=== PATIENT | male | born 1965 ===

== ENCOUNTER 2018-03-19 11:08 | Emergency (ER) | payer OTHER ==
[2018-03-19] MEDS ORDERED: Tdap Vaccine 0.5 ml Vial (10-64 yrs) IM ONE ×2 (12:10→13:14)
[2018-03-19] MEDS ORDERED: Lidocaine 1% w Epi 1:100,000 Inj IJ STA (12:13)
[2018-03-19] MEDS ORDERED: Oxycodone/Acetaminophen 5/325 mg Tab PO STA (12:13)
[2018-03-19 12:30] VITALS: O2SAT 96
[2018-03-19] MEDS ORDERED: Lidocaine 1% w Epi 1:100,000 Inj ONE (12:34)
[2018-03-19] MEDS ORDERED: Oxycodone/Acetaminophen 5/325 mg Tab ONE (13:14)
--- NOTE | 2018-03-19 13:51 | RAD ---
Date of service: 03/19/2018 PROCEDURE: Right Femur Radiographs. HISTORY: laceration COMPARISON: None. TECHNIQUE: AP and Lateral Radiographs of the right femur. FINDINGS: FEMUR: Normal. No fracture. SOFT TISSUES: Soft tissue laceration medial to the distal femoral diaphysis. OTHER FINDINGS: None. IMPRESSION: No acute fracture.
--- NOTE | 2018-03-19 13:58 | ED PDOC ---
Lower Extremity Pain/Injury Time Seen by Provider: 03/19/18 11:56 Chief Complaint (Nursing): Abnormal Skin Integrity Chief Complaint (Provider): Right thigh laceration, [employer]OR History Per: Patient History/Exam Limitations: no limitations Onset/Duration Of Symptoms: Mins Current Symptoms Are (Timing): Still Present Severity: Severe Pain Scale Rating Of: 9 Additional Complaint(s): 52 yo male with no medical problems presents with laceration of the right inner thigh [employer]. Pt sates he was using a circular saw. Unknown tetanus. No numbness/ tingling. Past Medical History Reviewed: Historical Data, Nursing Documentation, Vital Signs Vital Signs: Last Vital Signs Temp 98.6 F 03/19/18 12:29 Pulse 66 03/19/18 12:29 Resp 17 03/19/18 12:29 BP 120/79 03/19/18 12:29 Pulse Ox 96 03/19/18 12:29 - Medical History PMH: Gastritis - Surgical History Surgical History: No Surg Hx - Family History Family History: States: No Known Family Hx - Home Medications Home Medications: Ambulatory Orders Medication Instructions Recorded Acetaminophen with Codeine 1 tab PO Q6H PRN #15 tab 03/19/18 [Tylenol with Codeine No. 3 300 mg-30 mg] Clindamycin [Cleocin] 300 mg PO QID #40 cap 03/19/18 - Allergies Allergies/Adverse Reactions: Allergies Allergy/AdvReac Type Severity Reaction Status Date / Time No Known Allergies Allergy Verified 03/19/18 11:26 Review of Systems ROS Statement: Except As Marked, All Systems Reviewed And Found Negative Constitutional: Negative for: Fever, Chills Skin: Positive for: Other Physical Exam - Reviewed Nursing Documentation Reviewed: Yes Vital Signs Reviewed: Yes - Physical Exam Appears: Positive for: Well, Non-toxic, No Acute Distress Head Exam: Positive for: ATRAUMATIC, NORMAL INSPECTION, NORMOCEPHALIC Skin: Positive for: Warm. Negative for: Normal Color (8 cm laceration of the right medial laceration extending into the muscle, linear ) Eye Exam: Positive for: Normal appearance ENT: Positive for: Normal ENT Inspection Neck: Positive for: Normal Respiratory: Negative for: Accessory Muscle Use, Respiratory Distress Pulses-Dorsalis Pedis (R): 2+ Pulses-Post. Tibialis (R): 2+ Back: Positive for: Normal Inspection Extremity: Positive for: Normal ROM (in the knee, ankle and hit on the right ). Negative for: Deformity, Swelling Neurologic/Psych: Positive for: Alert, Oriented - ECG O2 Sat by Pulse Oximetry: 96 Disposition - Clinical Impression Clinical Impression: Laceration, Tetanus toxoid vaccination administered at current visit - Patient ED Disposition Is Patient to be Admitted: No Counseled Patient/Family Regarding: Diagnosis, Need For Followup, Rx Given - Disposition Referrals: [facility] [Outside] Disposition: Routine/Home Disposition Time: 14:08 Condition: STABLE Additional Instructions: Do not get wet for 24-48 hours. Keep clean and dry with antibiotic ointment. Suture removal in 14 days. Return sooner for signs of infection including increased pain, redness or drainage. Prescriptions: Acetaminophen with Codeine [Tylenol with Codeine No. 3 300 mg-30 mg] 1 tab PO Q6H PRN #15 tab PRN Reason: Pain, Severe (8-10) Clindamycin [Cleocin] 300 mg PO QID #40 cap Instructions: Laceration Repair Forms: [employer] (Monegasque), [facility] ED School/Work Excuse Print Language: MALTESE Laceration - Laceration Repair Right thigh Wound Length (In cm): 8 Description Of Wound: Linear Anesthesia: Lidocaine 1%, With Epi Wound Examination: Irrigated With Saline, No FB With Wound Exploration, No Tendon Injury With Wound Exploration Wound Closure: Suture Suture Technique And Material Used: Interrupted, Prolene (#8 3.0 vicryl, #7 4.0 prolene ), Vicryl Wound Complexity: Intermediate
[2018-03-19 14:10] VITALS: BP 127/78; PULSE 65; RESP 15; TEMP 98.1
== END 2018-03-19 14:37 | disposition home or self-care (01) ==
LOC: H.ER 11:08
DX: S71.111A Laceration without foreign body, right thigh, initial encounter (principal); W29.8XXA Contact with other powered hand tools and household machinery, initial encounter; Z23 Encounter for immunization